=== PATIENT | male | born 1980 | race Two or more races ===

== ENCOUNTER → 2024-08-15 | Outpatient (CLI) | payer MEDICAID, SELFPAY ==
--- NOTE | 2024-08-15 10:32 | XR_ITS ---
Examination: Knee, right , 3 views Technique: Knee AP, lateral, oblique 3 views Date and time of exam: August 15, 2024 1048 hours INDICATIONS: Right knee pain beginning 4 days ago. FINDINGS: Mild tricompartment osteoarthritis No fracture or dislocation No foreign body IMPRESSION: Mild tricompartment osteoarthritis
== END | disposition home or self-care (01) ==
PROVIDERS: PCP Physician Assistant; Referring Provider Nurse Practitioner Family; Visit Provider Nurse Practitioner Family
DX: M17.11 Unilateral primary osteoarthritis, right knee (principal)
CPT/HCPCS: 73562

== ENCOUNTER 2024-08-19 15:10 | Emergency (ER) | payer MEDICAID, SELFPAY ==
[2024-08-19 15:20] VITALS: BP 167/88; PULSE 83; RESP 16; TEMP 36.7; O2SAT 99
--- NOTE | 2024-08-19 15:25 | XR_ITS ---
Examination: Duplex scan of the lower extremity, unilateral right Date and time of exam: 4 1709 hrs. Indications: Right knee redness swelling and pain beginning 4 days ago Technique: Duplex scan of the extremity veins using B-mode/grayscale imaging and Doppler spectral analysis and color flow Attention is directed to internal echogenicity, compression and augmentation involving these veins, color flow assessment, spectral analysis Findings: Major deep venous structures in the extremity demonstrate normal course and caliber. There is no evidence of deep vein thrombosis. Normal color flow and spectral analysis Impression: Negative for DVT..
--- NOTE | 2024-08-19 15:26 | PD.EDADULT ---
ED General RME/HPI General Chief complaint: Ankle/Foot Injury Stated complaint: RIGHT KNEE PAIN/REDNESS Time Seen by Provider: 08/19/24 15:21 Arrival date/time: 08/19/24 15:10 RME / HPI RME / HPI narrative: 43-year-old male patient was brought in by family for evaluation regarding right lower leg redness. Onset of symptoms for the last 8 days as patient accidentally sustained a fall and since then has been having pain and redness to the right lower leg more on the medial aspect of the left lower leg. Patient also was noted to have mild swelling of the right lower leg no swelling to the knee joints. Patient is able to do full range of motion of the knee without any pain. No fever. Related Data Home Medications ?Medication ?Instructions ?Recorded ?Confirmed benazepril 20 mg tablet 20 mg PO HS 11/16/17 11/16/17 Previous Rx's ?Medication ?Instructions ?Recorded docusate sodium 100 mg capsule 100 mg PO BID #60 caps 11/17/17 (Colace) hydrocodone 7.5 mg-acetaminophen 1 tab PO Q6H PRN pain #30 tabs 11/17/17 325 mg tablet ([place]) ibuprofen 800 mg tablet 800 mg PO TID PRN pain #30 tabs 06/10/24 ibuprofen 800 mg tablet 800 mg PO TID PRN pain #30 tabs 08/19/24 sulfamethoxazole 800 1 tab PO BID #14 tabs 08/19/24 mg-trimethoprim 160 mg tablet (Bactrim DS) Allergies Allergy/AdvReac Type Severity Reaction Status Date / Time No Known Allergies Allergy Verified 08/19/24 15:14 Review of Systems Review of Systems Narrative Review of Systems: Review of system reviewed and within normal limits except mentioned in HPI ED Exam Narrative Physical exam: VITAL SIGNS: Reviewed. GENERAL APPEARANCE: Alert and interactive, follows commands, no acute distress, HEAD AND FACE: Non-traumatic. ENT: PERRL, pink conjunctivitis, eyelid no trauma, Mucous membrane moist. NECK: Supple, nontender, no nuchal rigidity. CHEST: No tenderness, no crepitus, no paradoxical movement, no retractions. LUNGS: Clear, well ventilated, symmetric, no rales, no wheezing, no ronchi, no stridor, good breath sounds bilaterally. HEART: Regular rate, regular rhythm, no murmur, no gallops. ABDOMEN: Soft, positive bowel sounds, nondistended, no guarding, nontender, no rebound, no masses, RECTAL: Deferred. GENITAL: Deferred. NEUROLOGICAL: Gross motor function intact sensory function intact, Appropriate for age. MUSCULOSKELETAL: low back nontender, full range of motion. EXTREMITIES: Right lower leg redness on the medial aspect, Full range of motion of the knee, distal neurovascular status intact on the right lower leg SKIN: Color pink, dry, no rash, no lacerations, no abrasions, no contusions. LYMPHATICS: Deferred. Course Quality Measures none Orders Category Date Time Status US venous doppler LE RT Stat Exams 08/19/24 15:25 Completed Trimethoprim/Sulfa 160/800 Ds [Bactrim Ds] Med 08/19/24 15:25 Discontinued 1 tab PO X1 ONE Vital Signs Vital signs: Vital Signs Temperature 98.1 F 08/19/24 15:20 Pulse Rate 83 08/19/24 15:20 Respiratory Rate 16 08/19/24 15:20 Blood Pressure 167/88 H 08/19/24 15:20 Pulse Oximetry (%) 99 08/19/24 15:20 Oxygen Delivery Method Room Air 08/19/24 15:20 MDM Patient data External records reviewed:: None Clinical information provided by:: patient Social determinants that could affect healthcare access:: none Patient has the following chronic illnesses:: Plan How is presenting disease/condition affected by chronic disease/condition?: no chronic disease Evaluation data The following diagnostics were reviewed and interpreted by me:: lab results Lab and/or radiology exams considered but not ordered:: None Interpretation Summary: Ultrasound the leg came back unremarkable. No DVT Medications Medications considered but not ordered:: None Medication administrations:: Medication Administration History Discontinued Medications Trimethoprim/Sulfamethoxazole (Trimethoprim/Sulfa 160/800 Ds Tablet) 1 tab PO X1 ONE Stop: 08/19/24 15:26 Last Admin: 08/19/24 15:28 Dose: 1 tab Documented By: OA Bactrim Consultations Consultation(s) initiated? (list below): No Diagnosis Differential Diagnosis ED Complaint MDM: Legs swelling, leg redness, leg pain, cellulitis Most likely diagnosis given after review of the tests above:: Cellulitis leg Admission Indicated Admission indicated?: not indicated Explain why admission is indicated or not indicated:: Stable for discharge Admission Request Was there a request for admission?: No Disposition Plan Disposition Plan: Discharge Discharge Attestation Discharge Attestation: The patient and all family members were given an opportunity to ask questions and understood the discharge instructions. Discharge instructions specifically effects, indications for sooner follow up or return to the emergency department, and the expected course of current diagnosis. Patient condition: Stable Medical Decision Making MDM Narrative MDM Narrative: 43-year-old male patient was brought in by family for evaluation regarding right lower leg redness. Onset of symptoms for the last 8 days as patient accidentally sustained a fall and since then has been having pain and redness to the right lower leg more on the medial aspect of the left lower leg. Patient also was noted to have mild swelling of the right lower leg no swelling to the knee joints. Patient is able to do full range of motion of the knee without any pain. No fever. Ultrasound of the right lower extremities negative for DVT. Patient was given Bactrim in the ED for cellulitis of the leg Differential Diagnosis Differential Diagnosis: Legs swelling, leg redness, leg pain, cellulitis Discharge Plan Plan Patient Disposition: HOME (Self Care) Disposition Comment: stABLE Prescriptions/Referrals Prescriptions/Med Rec: New sulfamethoxazole-trimethoprim [Bactrim DS] 800-160 mg tablet 1 tab PO BID Qty: 14 0RF ibuprofen 800 mg tablet 800 mg PO TID PRN (Reason: pain) Qty: 30 0RF No Action benazepril 20 mg Tablet 20 mg PO HS hydrocodone-acetaminophen [[place]] 7.5-325 mg tablet 1 tab PO Q6H MDD 4 PRN (Reason: pain) Qty: 30 0RF docusate sodium [Colace] 100 mg capsule 100 mg PO BID Qty: 60 0RF ibuprofen 800 mg tablet 800 mg PO TID PRN (Reason: pain) Qty: 30 0RF Problem List Clinical Impression: Cellulitis of leg Patient/Caregiver Discharge Instructions Discharge Activity: activity as tolerated Education Materials: ED Cellulitis Additional Instructions: Thank you for the opportunity for serving you today. You are stable for discharged . You are advised to: Follow-up with your PCP in 1 to 2 days Return to ED for worsening of symptoms Increase oral fluids Take medication as prescribed Print Language: Russian Stand Alone Forms: Ingrid Award Info., Patient Portal Info Letter DAVID/SVITLANA Supervising Physician DAVID/SVITLANA Supervising Physician: md Artemio
[2024-08-19] MEDS: TRIMETHOPRIM/SULFA 160/800 DS TABLET 1 TAB PO (15:28)
== END 2024-08-19 18:52 | disposition home or self-care (01) ==
LOC: SERX 18:37
PROVIDERS: Emergency Provider Emergency Medicine
DX: L03.115 Cellulitis of right lower limb (principal)
CPT/HCPCS: 93971; 99284; A9270

== ENCOUNTER 2024-09-24 07:19 | Emergency (ER) | payer MEDICAID, SELFPAY ==
[2024-09-24 07:43] VITALS: BP 138/85; PULSE 75; RESP 16; TEMP 36.7; O2SAT 97; BMI 33.5
--- NOTE | 2024-09-24 07:51 | EKG_ITS ---
[facility] Test Date: 2024-09-24 Pat Name: KELY FINLEY Department: Room: - Gender: Male Records Section Supervisor: : 1980 Requested By: Cate Fontaine ([facility]) Reji Order Number: [id number] Reading MD: Cate Fontaine ([facility]) Reji Measurements Intervals [place] Rate: 65 P: 45 AL: 142 QRS: 6 QRSD: 109 T: 20 QT: 370 QTc: 387 Interpretive Statements SINUS RHYTHM POSSIBLE RIGHT VENTRICULAR CONDUCTION DELAY [RSR (QR) IN V1/V2] No previous ECG available for comparison /store/S0/[id number].pdf
--- NOTE | 2024-09-24 07:51 | XR_ITS ---
Examination: PA lateral chest 2 views Technique: Upright PA lateral chest 2 views Exam date and time: September 24, 2024 0800 hrs. Comparison November 16, 2017 Indications: Chest pain beginning 3 days ago. Findings: Minimal prominence left ventricle Fat pad at the left cardiophrenic angle. No interval pneumonia or pulmonary edema The osseous structures are intact Impression: No interval pneumonia or pulmonary edema
--- NOTE | 2024-09-24 07:51 | PD.EDRME ---
Rapid Medical Screening Exam RME Arrival date/time: 09/24/24 07:19 44-year-old male who presents to the emergency department with complaints of left chest pain left epigastric pain for 3 days. I have greeted and performed a focused initial assessment of this patient. Initial appropriate labs ordered at this time. A comprehensive ED assessment and evaluation of the patient and analysis of all test and completion of medical decision making process will be conducted by additional ED provider. Chief Complaint: Chest Pain Time Seen by Provider: 09/24/24 07:24 Vital signs: Vital Signs Temperature 98.0 F 09/24/24 07:43 Pulse Rate 75 09/24/24 07:43 Respiratory Rate 16 09/24/24 07:43 Blood Pressure 138/85 H 09/24/24 07:43 Pulse Oximetry (%) 97 09/24/24 07:43 Oxygen Delivery Method Room Air 09/24/24 07:43
[2024-09-24 09:33] LABS: Collection Type, Urine Clean Catch
[2024-09-24 09:44] LABS: Basophils # (Auto) 0.1 Thou/mm3 (0.0-0.2); Basophils % (Auto) 1 % (0-2.5); Eosinophils # (Auto) 0.2 Thou/mm3 (0.0-0.5); Eosinophils % (Auto) 2 % (0-10); Hematocrit 47.4 % (41.0-53.0); Hemoglobin 15.9 g/dL (13.5-16.0); Immature Granulocytes % (Auto) 1 % (0-0); Immature Granulocytes Auto 0.04 Thou/mm3 (0.00-0.00); Lymphocytes # (Auto) 3.1 Thou/mm3 (1.0-4.8); Lymphocytes % (Auto) 42 % (10-50); Mean Corpuscular HGB Conc 33.5 g/dl (31.0-37.0); Mean Corpuscular Hemoglobin 29.1 pg (25.0-35.0); Mean Corpuscular Volume 87 fL (80-100); Monocytes # (Auto) 0.6 Thou/mm3 (0.0-0.8); Monocytes % (Auto) 8 % (0-12); Neutrophils # (Auto) 3.5 Thou/mm3 (1.8-7.7); Neutrophils % (Auto) 47 % (37-80); Nucleated Red Blood Cell % 0 /100 WBC (0); Platelet Count 159 Thou/mm3 (140-440); RDW Standard Deviation 40.1 fL (35.1-43.9); Red Blood Count 5.46 Miln/mm3 (4.50-5.90); White Blood Count 7.4 Thou/mm3 (3.8-10.6)
[2024-09-24 09:50] LABS: Bilirubin,Urine Negative (Negative); Blood,Urine Negative (Negative); Clarity,Urine Clear (Clear/Hazy); Color,Urine Lt-Yellow (Lt Yel-Yel); Glucose, Urine Negative (Negative); Ketones,Urine Negative (Negative); Leukocyte Esterase,Urine Negative (Negative); Nitrite,Urine Negative (Negative); PH,Urine 7.5 (5.0-7.0); Protein,Urine Negative (Neg - Trace); RBC,Urine 2 /hpf (0-3); Specific Gravity,Urine 1.028 (1.001-1.035); Squamous Epithelial Cell,Urine < 1 /hpf (0-5); Urobilinogen,Urine Negative mg/dL (0.0-1.0); WBC,Urine 1 /hpf (0-5)
[2024-09-24 10:04] LABS: Alanine Aminotransferase 48 U/L (10-49); Albumin, Serum 4.8 gm/dL (3.5-5.0); Albumin/Globulin Ratio 1.6 (1.2-2.2); Alkaline Phosphatase 68 U/L (46-116); Anion Gap 9 (7-16); Aspartate Amino Transferase 33 U/L (0-34); BUN/Creatinine Ratio 17 Ratio (12-20); Bilirubin,Total 0.9 mg/dL (0.3-1.2); Blood Urea Nitrogen 15 mg/dL (9-23); Calcium 9.9 mg/dL (8.3-10.6); Calcium (Corrected) 9.9 mg/dL (8.5-10.1); Carbon Dioxide 28.8 mMol/L (20.0-31.0); Chloride 101 mMol/L (98-107); Creatinine (Component) 0.9 mg/dL (0.6-1.3); Estimated Creatinine Clearance 110.3 mL/min (>60); Glucose 100 mg/dL (74-106); Lipase 37 U/L (12-53); Osmolality,Calculated 278 (275-295); Sodium 139 mMol/L (136-145); Total Protein 7.8 gm/dL (5.7-8.2); Troponin I < 0.002 ng/mL (0.0-0.045); eGFR > 60 See Note
--- NOTE | 2024-09-24 10:11 | XR_ITS ---
Examination: Abdomen sonogram, Limited Date and time of exam: September 24, 2024 1026 hrs. Indications: Epigastric pain chest pain beginning 3 days ago Technique: Real-time acosta scale transabdominal sonographic images of the upper abdomen obtained. Findings: 6 mm gallbladder polyp No gallstones Normal gallbladder wall Normal common bile duct Pancreatic head 2.8 cm Liver 14.9 cm irregular contour small liver cysts Normal hepatopedal portal venous oh Patent IVC Impression: 6 mm gallbladder polyp Negative for cholelithiasis, negative for cholecystitis Suspicious for primary hepatocellular disease
[2024-09-24 11:07] LABS: Troponin I < 0.002 ng/mL (0.0-0.045)
--- NOTE | 2024-09-24 11:42 | EDNOTE_ITS ---
ED Chest Pain RME/HPI General Chief Complaint: Chest Pain Stated Complaint: CHEST PAIN FOR 3 DAYS Time Seen by Provider: 09/24/24 07:24 Arrival date/time: 09/24/24 07:19 RME / HPI RME / HPI narrative: 09/24/24 07:19 44-year-old male who presents to the emergency department with complaints of left chest pain left epigastric pain for 3 days. I have greeted and performed a focused initial assessment of this patient. Initial appropriate labs ordered at this time. A comprehensive ED assessment and evaluation of the patient and analysis of all test and completion of medical decision making process will be conducted by additional ED provider. DR. ROSA MAIN ED EVALUATION 44 year old male with history of hypertension presents to the ED for evaluation of left sided chest pain that began 2 days ago. Pain initially described as pressure in sensation however in the last 24 hours described as aching, rating as mild-moderate. Denies associated shortness of breath or cough. Denies trauma/injury. Denies fevers, chills, abdominal pain, nausea, vomiting, diarrhea, or urinary symptoms. Denies any history of similar pain. Related Data Home Medications ?Medication ?Instructions ?Recorded ?Confirmed benazepril 20 mg tablet 20 mg PO HS 11/16/17 11/16/17 Previous Rx's ?Medication ?Instructions ?Recorded docusate sodium 100 mg capsule 100 mg PO BID #60 caps 11/17/17 (Colace) hydrocodone 7.5 mg-acetaminophen 1 tab PO Q6H PRN pain #30 tabs 11/17/17 325 mg tablet ([place]) ibuprofen 800 mg tablet 800 mg PO TID PRN pain #30 tabs 06/10/24 ibuprofen 800 mg tablet 800 mg PO TID PRN pain #30 tabs 08/19/24 sulfamethoxazole 800 1 tab PO BID #14 tabs 08/19/24 mg-trimethoprim 160 mg tablet (Bactrim DS) Allergies Allergy/AdvReac Type Severity Reaction Status Date / Time No Known Allergies Allergy Verified 09/24/24 07:22 Review of Systems Review of Systems Narrative Review of Systems: GEN: No fever, no chills, no weight loss EYES: No discharge, no visual changes, no pain HEENT: No ear pain, no congestion, no sore throat PULM: No shortness of breath, no cough, no congestion CV: +chest pain, no palpitations GI: No nausea, no vomiting, no diarrhea, no pain, no constipation : No frequency, no urgency and no dysuria MUSC/SKEL No joint pain, no back pain SKIN: No rash NEURO: No weakness, no headache Past Medical History Past Medical History CARDIAC: Positive Cardiac Disorders and Hypertension GASTROINTESTINAL: Positive Gastrointestinal Disorders (CONSTIPATION) MUSCULOSKELETAL: Positive Fractures (LEFT HAND-CAST) Family History FAMILY HISTORY: Positive Family Cardiac Disorders (MOTHER) Social History SMOKING STATUS: Never smoker ED Exam Narrative Physical exam: GENERAL APPEARANCE: Well hydrated, well nourished, in no acute distress. VITALS: All vitals were reviewed and the pulse ox is 97% on room air which is normal according to my interpretation. HEENT: Normocephalic, atramatic, EOMI, EACs are patent. There is no bulge or retraction. Throat without erythema or exudate. Moist oromucosa. No jaundice NECK: Supple, no JVD or bruits. CARDIOVASCULAR: Heart regular without S3-S4 or murmur. No rubs or gallops. LUNGS/CHEST: Clear to auscultation bilaterally. No rales, rhonchi, or wheezing. Normal inspection. ABDOMEN: Soft, nontender, with normal bowel sounds. No pulsatile masses. No rebound, rigidity, or guarding. No incarcerated hernia. Normal inspection and palpation. EXTREMITIES: Normal inspection and palpation. No edema, clubbing, or cyanosis. Intact CSM SKIN: Warm and dry without rashes. Normal inspection. MUSCULOSKELETAL: Normal inspection. No gross deformity, full ROM all extremities NEURO: Alert and oriented x3. Cranial nerves II through XII grossly intact. There are no other motor or sensory deficits noted. PSYCHIATRIC: Normal mood and affect. No psychosis Course Course Course Narrative: chest xray ordered to help determine etiology of chest pain. Quality Measures none Orders Category Date Time Status EKG (ED ONLY) *Do not use* NOW Care 09/24/24 07:51 Completed NPO STAT Care 09/24/24 07:51 Active EKG (ED Only) Stat Exams 09/24/24 07:51 Draft US gall bladder Stat Exams 09/24/24 10:11 Completed XR chest 2V Stat Exams 09/24/24 07:51 Completed CBC Stat Lab 09/24/24 08:05 Completed Comprehensive Metabolic Panel Stat Lab 09/24/24 08:05 Completed Lipase Stat Lab 09/24/24 08:05 Completed Magnesium Stat Lab 09/24/24 08:05 Completed Troponin I Stat Lab 09/24/24 08:05 Completed Troponin I Stat Lab 09/24/24 10:41 Completed Urinalysis Stat Lab 09/24/24 08:30 Completed Vital Signs Vital signs: Vital Signs Temperature 98.0 F 09/24/24 07:43 Pulse Rate 75 09/24/24 07:43 Respiratory Rate 16 09/24/24 07:43 Blood Pressure 138/85 H 09/24/24 07:43 Pulse Oximetry (%) 97 09/24/24 07:43 Oxygen Delivery Method Room Air 09/24/24 07:43 Chest Pain MDM Narrative MDM Narrative:: Maribell Noguera am scribing for and in the presence of Dr. Rosa. CBC negative. CMP and lipase negative. Troponin negative twice. Magnesium negative. UA is negative. 2 view chest x-ray interpreted by me: Clear lungs. Heart normal. Mediastinum normal. Normal bones. [facility] [address] [place] [address] [place] [facility] Report Signed Patient: KELY FINLEY. Record#: [id number] Birthdate: 1980 Age/Sex: 44 / M Location: [facility] Attending Dr: Ordering Physician: Cate Fontaine Date of Service: 09/24/24 Procedure(s): US gall bladder Accession Number(s): [id number] cc: Chandrakant Maya; Mic Carpenter MD; Cate Fontaine~ Examination: Abdomen sonogram, Limited Date and time of exam: September 24, 2024 1026 hrs. Indications: Epigastric pain chest pain beginning 3 days ago Technique: Real-time acosta scale transabdominal sonographic images of the upper abdomen obtained. Findings: 6 mm gallbladder polyp No gallstones Normal gallbladder wall Normal common bile duct Pancreatic head 2.8 cm Liver 14.9 cm irregular contour small liver cysts Normal hepatopedal portal venous oh Patent IVC Impression: 6 mm gallbladder polyp Negative for cholelithiasis, negative for cholecystitis Suspicious for primary hepatocellular disease Dictated By: Mic Carpenter MD Signed By: <Electronically signed by Mic Carpenter MD in OV> 09/24/24 1240 DD/ 1239 TD/TT: 09/24/24 1239 Genetic Physician: LELO Twelve-lead EKG that was done at 7:59 AM and interpreted by me: Normal sinus rhythm. Heart rate of 65. Normal axis. No ST elevation or depression. No PVC. No STEMI. Regular rate and rhythm. 2 troponins have been negative so far. And the patient is not in pain by the time of discharge 1:14 PM. Patient data External records reviewed:: [facility] previous records (I reviewed ED visit on 08/19/2024 ) Clinical information provided by:: patient Social determinants that could affect healthcare access:: alcohol use Patient has the following chronic illnesses:: Hypertension How is presenting disease/condition affected by chronic disease/condition?: exacerbated by Evaluation data The following diagnostics were reviewed and interpreted by me:: lab results, radiology exam(s) and EKG tracing(s) Lab and/or radiology exams considered but not ordered:: None Interpretation Summary: Ordering Physician: Cate Fontaine Date of Service: 09/24/24 Procedure(s): XR chest 2V Accession Number(s): [id number] cc: Mic Carpenter MD; Cate Fontaine~ Examination: PA lateral chest 2 views Technique: Upright PA lateral chest 2 views Exam date and time: September 24, 2024 0800 hrs. Comparison November 16, 2017 Indications: Chest pain beginning 3 days ago. Findings: Minimal prominence left ventricle Fat pad at the left cardiophrenic angle. No interval pneumonia or pulmonary edema The osseous structures are intact Impression: No interval pneumonia or pulmonary edema Dictated By: Mic Carpenter MD Signed By: <Electronically signed by Mic Carpenter MD in OV> 09/24/24 0806 ====== Medications / Prescriptions Medications or Prescriptions considered but not ordered:: None Medication administrations:: See above Consultations Consultation(s) initiated? (list below): No Diagnosis Chest Pain Differential Diagnosis: pneumothorax, atypical chest pain, st eleva tion myocardial infarction, costochondritis, chest pain and biliary colic Most likely diagnosis given after review of the tests above:: Atypical chest pain Admission Indicated Admission indicated?: not indicated Admission Request Was there a request for admission?: No Disposition Plan Disposition Plan: Discharge Discharge Attestation Discharge Attestation: The patient and all family members were given an opportunity to ask questions and understood the discharge instructions. Discharge instructions specifically effects, indications for sooner follow up or return to the emergency department, and the expected course of current diagnosis. Patient condition: Stable Discharge Plan Plan Patient Disposition: HOME (Self Care) Disposition Comment: Stable and improved Prescriptions/Referrals Prescriptions/Med Rec: No Action benazepril 20 mg Tablet 20 mg PO HS hydrocodone-acetaminophen [[place]] 7.5-325 mg tablet 1 tab PO Q6H MDD 4 PRN (Reason: pain) Qty: 30 0RF docusate sodium [Colace] 100 mg capsule 100 mg PO BID Qty: 60 0RF sulfamethoxazole-trimethoprim [Bactrim DS] 800-160 mg tablet 1 tab PO BID Qty: 14 0RF ibuprofen 800 mg tablet 800 mg PO TID PRN (Reason: pain) Qty: 30 0RF ibuprofen 800 mg tablet 800 mg PO TID PRN (Reason: pain) Qty: 30 0RF Referrals: Chandrakant Small [Primary Care Provider] - In 1 week Problem List Clinical Impression: Atypical chest pain, Gallbladder polyp Patient/Caregiver Discharge Instructions Education Materials: ED Chest Pain, Uncertain Cause Additional Instructions: You can take Motrin for pain as needed. Follow-up with your medical doctor in 3 days. Return the nearest ER if condition worsens or if new symptoms develop. N ote that the ultrasound also shows the gallbladder polyp Print Language: Monegasque Stand Alone Forms: Ingrid Award Info., Patient Portal Info Letter
[2024-09-24 12:36] VITALS: BP 138/94; PULSE 72; RESP 19; TEMP 36.7; O2SAT 100
== END 2024-09-24 14:13 | disposition home or self-care (01) ==
PROVIDERS: Nurse Practitioner Primary Care; Emergency Provider Emergency Medicine; PCP Physician Assistant
DX: R07.89 Other chest pain (principal); K82.4 Cholesterolosis of gallbladder; I10 Essential (primary) hypertension
CPT/HCPCS: 36415; 71046; 76705; 80053; 81001; 83690; 83735; 84484; 85025; 93005; 99284